=== PATIENT | male | born 1965 | race African-American/Black ===

== ENCOUNTER 2017-06-17 16:23 | Emergency (ER) | payer MEDICARE, MEDICAID ==
[2017-06-17 16:37] VITALS: BP 160/104
--- NOTE | 2017-06-17 17:32 | ER Document Report ---
HPI - HPI Patient complains to provider of: right foot pain Onset: Yesterday Onset/Duration: Gradual Pain Level: 4 Context: 51yo male with hx gout in 1st left MTP developed pain, erythema, swelling to the right 1st MTP yesterady. No flare for 1 year. No preventive meds.No PCP> Used to take antihypertensive, none in over a year. Associated Symptoms: None Exacerbated by: Movement Relieved by: Denies Similar symptoms previously: Yes Recently seen / treated by doctor: No - ROS ROS below otherwise negative: Yes Systems Reviewed and Negative: Yes All other systems reviewed and negative - CONSTITUTIONAL Constitutional: DENIES: Fever - MUSCULOSKELETAL Musculoskeletal: REPORTS: Extremity pain - right foot Past Medical History - General Information source: Patient - Social History Smoking Status: Never Smoker Chew tobacco use (# tins/day): No Frequency of alcohol use: Rare Drug Abuse: None Lives with: Family Family History: Reviewed & Not Pertinent Patient has suicidal ideation: No Patient has homicidal ideation: No - Past Medical History Cardiac Medical History: Reports: Hx Hypertension Renal/ Medical History: Denies: Hx Peritoneal Dialysis Musculoskeltal Medical History: Reports Hx Gout Past Surgical History: Reports: Hx Abdominal Surgery - hernia repair, Hx Orthopedic Surgery Vertical Provider Document - CONSTITUTIONAL Agree With Documented VS: No - pulse 96 at this time Exam Limitations: No Limitations General Appearance: No Apparent Distress - INFECTION CONTROL TRAVEL OUTSIDE OF THE [place] IN LAST 30 DAYS: No - HEENT HEENT: Normocephalic - NECK Neck: Supple - RESPIRATORY Respiratory: Breath Sounds Normal, No Respiratory Distress O2 Sat by Pulse Oximetry: 95 - CARDIOVASCULAR Cardiovascular: Regular Rate, Regular Rhythm - MUSCULOSKELETAL/EXTREMETIES Musculoskeletal/Extremeties: Tender, Edema - erythema, with increased pain with 1st right MTP joint movement. 2+ DP - NEURO Level of Consciousness: Awake, Alert Motor/Sensory: No Motor Deficit, No Sensory Deficit - DERM Integumentary: Warm, Dry, No Rash Course - Re-evaluation Re-evalutation: 06/17/17 17:38 Patient states he has not had antihypertensives for a year. He used to live in [place]. Patient denies any history of renal problems. 06/17/17 17:44 - Vital Signs Vital signs: Temp Pulse Resp BP Pulse Ox 99.6 F 113 H 14 160/104 H 95 06/17/17 16:34 06/17/17 16:34 06/17/17 16:34 06/17/17 16:34 06/17/17 16:34 Discharge - Discharge Clinical Impression: Hypertension Qualifiers: Hypertension type: essential hypertension Qualified Code(s): I10 - Essential ( primary) hypertension Gout Qualifiers: Gout site: toe Gout etiology: unspecified cause Chronicity: acute Laterality: right Qualified Code(s): M10.9 - Gout, unspecified Condition: Good Disposition: HOME, SELF-CARE Instructions: Family Physicians / Practices, Gout ([facility]), Gout Diet ([facility]), High Blood Pressure ([facility]), High Blood Pressure, Requiring Treatment ([facility]), Steroid Medication Additional Instructions: see family practice doctor locally now that you live here for blood pressure medication to er if worse Prescriptions: Prednisone [Deltasone 10 mg Tablet] 10 mg PO ASDIR PRN #21 tablet PRN Reason:
[2017-06-17] MEDS ORDERED: PREDNISONE 20 MG TABLET PO ONE (17:47)
== END 2017-06-17 18:11 | disposition home or self-care (01) ==
LOC: ER 16:23
DX: M10.9 Gout, unspecified (principal); I10 Essential (primary) hypertension; M79.671 Pain in right foot
CPT/HCPCS: 99283; A9270; J7512

== ENCOUNTER 2017-08-09 15:30 | Emergency (ER) | payer MEDICARE, MEDICAID ==
[2017-08-09] MEDS ORDERED: IBUPROFEN 800 MG TABLET PO ONE (15:56)
--- NOTE | 2017-08-09 16:00 | ER Document Report ---
HPI - HPI Patient complains to provider of: knee pain Onset: Last week Onset/Duration: Persistent Quality of pain: Achy Pain Level: 4 Context: Patient presents complaining of bilateral knee pain that he has had chronically for years. Patient states the pain is worsened over the past few weeks. Patient denies any new injury. Patient denies any fever. Associated Symptoms: Other - knee pain. denies: Fever Exacerbated by: Movement Relieved by: Denies Similar symptoms previously: Yes Recently seen / treated by doctor: No - ROS ROS below otherwise negative: Yes Systems Reviewed and Negative: Yes All other systems reviewed and negative - CONSTITUTIONAL Constitutional: DENIES: Fever - NEURO Neurology: DENIES: Weakness - GASTROINTESTINAL Gastrointestinal: DENIES: Nausea - MUSCULOSKELETAL Musculoskeletal: REPORTS: Extremity pain. DENIES: Swelling - DERM Skin Color: Normal Skin Problems: None Past Medical History - General Information source: Patient - Social History Smoking Status: Never Smoker Frequency of alcohol use: Occasional Drug Abuse: None Occupation: [employer] Family History: Reviewed & Not Pertinent - Past Medical History Cardiac Medical History: Reports: Hx Hypertension Renal/ Medical History: Denies: Hx Peritoneal Dialysis Musculoskeltal Medical History: Reports Hx Gout Past Surgical History: Reports: Hx Abdominal Surgery - hernia repair, Hx Orthopedic Surgery Vertical Provider Document - CONSTITUTIONAL Agree With Documented VS: Yes Exam Limitations: No Limitations General Appearance: WD/WN, No Apparent Distress - INFECTION CONTROL TRAVEL OUTSIDE OF THE [place] IN LAST 30 DAYS: No - HEENT HEENT: Atraumatic, Normocephalic - NECK Neck: Normal Inspection - RESPIRATORY Respiratory: Breath Sounds Normal, No Respiratory Distress - CARDIOVASCULAR Cardiovascular: Regular Rate, Regular Rhythm Pulses: Normal: Posterior tibial - BACK Back: Normal Inspection - MUSCULOSKELETAL/EXTREMETIES Musculoskeletal/Extremeties: MAEW, FROM, Tender - Bilateral knee joint tenderness, no effusion, no laxity with varus or valgus maneuvers. Patellar tendon intact bilaterally. Normal skin color and temperature overlying joint - NEURO Level of Consciousness: Awake, Alert, Appropriate Motor/Sensory: No Motor Deficit - DERM Integumentary: Warm, Dry, No Rash Course - Re-evaluation Re-evalutation: 08/09/17 15:57 Patient advised that the emergency department does not manage chronic painful conditions. Patient encouraged to follow-up with his primary doctor as well as orthopedic doctor for further management of chronic arthritic knee pain. No concern for septic arthritis at this time, no history of recent trauma. 08/09/17 15:58 The patient has been informed that they may have pre-hypertension or hypertension based on a blood pressure reading in the emergency department. I recommend that patient call the primary care provider listed on their discharge instructions or a physician of their choice by this week to arrange follow-up for further evaluation of possible pre-hypertension or hypertension. Procedures - Immobilization Left Knee Pre-Proc Neuro Vasc Exam: Normal Immobilizer type: Chapo wrap Performed by: PCT Post-Proc Neuro Vasc Exam: Normal Alignment checked and good: Yes Right Knee Pre-Proc Neuro Vasc Exam: Normal Immobilizer type: Chapo wrap Performed by: PCT Post-Proc Neuro Vasc Exam: Normal Alignment checked and good: Yes Discharge - Discharge Clinical Impression: Elevated blood pressure reading, Hx of chronic arthritis Bilateral knee pain Qualifiers: Chronicity: chronic Qualified Code(s): M25.561 - Pain in right knee Condition: Stable Disposition: HOME, SELF-CARE Instructions: Anti-Inflammatory Medication ([facility]), Arthritis ([facility]), Ultram ([facility]) Additional Instructions: Return immediately for any new or worsening symptoms Followup with your primary care provider, call tomorrow to make a followup appointment Follow-up with orthopedic doctor for further evaluation, call Friday for an appointment Prescriptions: Naproxen [Naprosyn 250 Nmg Tablet] 1 tab PO BID #14 tablet Tramadol HCl [Ultram 50 mg Tablet] 50 mg PO ASDIR PRN #15 tablet PRN Reason: Forms: Elevated Blood Pressure, Return to Work Referrals: [facility] [Provider Group] - 08/11/17 [facility] [Provider Group] - Follow up in 3-5 days
[2017-08-09 16:49] VITALS: BP 175/105
== END 2017-08-09 16:27 | disposition home or self-care (01) ==
LOC: ER 15:30
DX: G89.29 Other chronic pain (principal); M25.561 Pain in right knee; M25.562 Pain in left knee; I10 Essential (primary) hypertension; Z87.39 Personal history of other diseases of the musculoskeletal system and connective tissue
CPT/HCPCS: 99283; A9270

== ENCOUNTER → 2017-08-29 | Outpatient (CLI) | payer MEDICARE, MEDICAID ==
[2017-08-29 15:10] LABS: ABSOLUTE EOSINOPHILS # (AUTO) 0.1 10^3/uL (0.0-0.6); ABSOLUTE LYMPHOCYTES (AUTO) 2.1 10^3/uL (0.5-4.7); ABSOLUTE MONOCYTES (AUTO) 0.3 10^3/uL (0.1-1.4); ABSOLUTE NEUT (AUTO) 1.6 10^3/uL (1.7-8.2); BASOPHILS % (AUTO) 0.6 % (0-2); EOSINOPHILS % (AUTO) 2.6 % (0-6); HEMATOCRIT 40.5 % (37.9-51.0); LYMPHOCYTES % (AUTO) 50.9 % (13-45); MEAN CORPUSCULAR HEMOGLOBIN 22.1 pg (27.0-33.4); MEAN CORPUSCULAR VOLUME 69 fl (80-97); MONOCYTES % (AUTO) 7.3 % (3-13); PLATELET COUNT 328 10^3/uL (150-450); RED BLOOD COUNT 5.88 10^6/uL (4.35-5.55); RED CELL DISTRIBUTION WIDTH 16.2 % (11.5-14.0); SEGMENTED NEUTROPHILS % (AUTO) 38.6 % (42-78); TOTAL CELLS COUNTED % (AUTO) 100 %; WHITE BLOOD COUNT 4.2 10^3/uL (4.0-10.5)
[2017-08-29 15:17] LABS: APPEARANCE,URINE CLEAR; BILIRUBIN,URINE NEGATIVE (NEGATIVE); COLOR,URINE YELLOW; GLUCOSE, URINE NEGATIVE (NEGATIVE); KETONES,URINE NEGATIVE (NEGATIVE); LEUKOCYTE ESTERASE,URINE NEGATIVE (NEGATIVE); NITRITE,URINE NEGATIVE (NEGATIVE); PROTEIN,URINE NEGATIVE (NEGATIVE); URINE SPECIFIC GRAVITY 1.021
[2017-08-29 15:26] LABS: ANION GAP 12 (5-19); BLOOD UREA NITROGEN 12 mg/dL (7-20); CALCIUM 10.2 mg/dL (8.4-10.2); CARBON DIOXIDE 23 mmol/L (22-30); CHLORIDE 107 mmol/L (98-107); GLUCOSE 104 mg/dL (75-110); POTASSIUM 4.2 mmol/L (3.6-5.0); SODIUM 142.4 mmol/L (137-145)
--- NOTE | 2017-08-29 17:27 | RADIOLOGY REPORT (SQ) ---
EXAM DESCRIPTION: CHEST PA/LATERAL COMPLETED DATE/TIME: 08/29/2017 3:02 pm REASON FOR STUDY: PRE-OP COMPARISON: None. EXAM PARAMETERS: NUMBER OF VIEWS: two views TECHNIQUE: Digital Frontal and Lateral radiographic views of the chest acquired. RADIATION DOSE: NA LIMITATIONS: none FINDINGS: LUNGS AND PLEURA: No opacities, masses or pneumothorax. No pleural effusion. MEDIASTINUM AND HILAR STRUCTURES: No masses or contour abnormalities. HEART AND VASCULAR STRUCTURES: Heart normal size. No evidence for failure. BONES: No acute findings. HARDWARE: None in the chest. OTHER: No other significant finding. IMPRESSION: NO SIGNIFICANT RADIOGRAPHIC FINDING IN THE CHEST. TECHNICAL DOCUMENTATION: JOB ID: [id number] [employer]- All Rights Reserved Reading location - IP/workstation name: [email or web address]
--- NOTE | 2017-08-29 22:19 | EKG REPORT ---
SEVERITY:- ABNORMAL ECG - SINUS RHYTHM RBBB AND LAFB LVH BY VOLTAGE : Confirmed by: Misti Simms 29-Aug-2017 22:19:07
== END ==
LOC: OD 14:17
PROVIDERS: ATTEND Orthopaedic Surgery
DX: Z01.818 Encounter for other preprocedural examination (principal); M17.12 Unilateral primary osteoarthritis, left knee
CPT/HCPCS: 36415; 71046; 80048; 81001; 85025; 93005; 93010

== ENCOUNTER 2017-09-15 08:41 | Inpatient (IN) | payer MEDICARE, MEDICAID ==
[~2017-09-15 08:41] MED LIST: BUPIVACAINE INJ/PF LIPOSOME/PF 266 MG/20 ML SDV IJ PRN; CEFAZOLIN INJ 1 GM VIAL IV PRN; IBUPROFEN 800 MG in DEXTROSE 5%-WATER 250 ML IV PRN; IBUPROFEN 800 MG/NS 250 ML IV PRN; LACTATED RINGERS 1000 ML IV PRN; LANSOPRAZOLE 15 MG TAB.RAP.DR PO PRN; LIDOCAINE 0.5% INJ-PF (5 MG/ML) 50 ML SDV SUBCUT PRN; OXYCODONE HCL SR 10 MG TABLET PO PRN; TETRACAINE HCL/PF 20MG/2ML AMPULE (SPINAL) ONE; VANCOMYCIN HCL 1,000 MG in DEXTROSE 5%-WATER 250 ML IV PRN
--- NOTE | 2017-09-15 09:45 | Physician Advisory Note ---
Physician Advisor ProgressNote .: Pursuant to the plan for [facility], I have reviewed the medical record for this patient. Physician Advisor Statement: 52yo with bipolar d/o, OA both knees, prior arthoscopy Lt knee for ACL, screws in Lt leg, screws & plate Rt hand, HTN, HLD, angina, herniorrhaphy w/mesh 2016, obesity w/BMI 31.6, childhood asthma, limited quite a lot with vigorous activities, stairs, bending/kneeling/stooping , dressing self, shampooing hair, washing/drying body, and getting on/off toilet , and somewhat limited with walking >1mile, and chores such as yardwork. Status: Insufficient info to make definite determination yet, but pt does have OA in both knees, not just 1, and has significant limitations not only in ADLs requiring knee movement but also with upper extremity ADLs, which may impact the speed of his post-op recovery, r.e. walker mobility. Furthermore, depending on the details of his angina issues, cardiovascular complications could potentially contribute to his not progressing fast enough to be safe for d /c the day after surgery. H&P states pt - Suspect this patient has a strong likelihood of not being able to progress fast enough for d/c on POD#1. If attending agrees, and documents his reasoning , this patient can be appropriate for Inpatient status from the beginning. Surgical necessity: Nonsurgical treatments already tried, and ADLs interfered with by pain or functional disability from Lt knee OA are nicely documented in H&P (though stating how long each treatment has been tried, with specific results for each, would be optimal - details that could be delegated to a nurse to input if attending signs their documentation). What still needs to be documented explicitly (what is already stated in H&P might be accepted by some auditors, but others may refuse to acknowledge surgical necessity without explicit documentation of which of the x-ray findings below are present, per CMS guidance list): 4. Specific radiologic findings pre-op of this knee include (Choose ALL that apply): A. Subchondral cysts B. Subchondral sclerosis C. Periarticular osteophytes D. Joint space narrowing / endstage joint disease E. Joint subluxation F. AVN / osteonecrosis Thanks for all you do! CK
[2017-09-15] MEDS ORDERED: THROMBIN (BOVINE) TOPICAL 20000 UNIT VIAL ONE (10:26)
[2017-09-15] MEDS ORDERED: THROMBIN (BOVINE) 5000 UNIT EPITAXIS KIT ONE (10:27)
[2017-09-15] MEDS ORDERED: BUPIVACAINE INJ/PF LIPOSOME/PF 266 MG/20 ML SDV ONE (10:27)
[2017-09-15] MEDS ORDERED: ONDANSETRON HCL INJ/PF 4 MG/2 ML SDV ONE (10:45)
[2017-09-15] MEDS ORDERED: FENTANYL CITRATE INJ/PF 100 MCG/2 ML AMPUL ONE (10:45)
[2017-09-15] MEDS ORDERED: EPHEDRINE SULFATE INJ 50 MG/1 ML AMPULE ONE (10:45)
[2017-09-15] MEDS ORDERED: MIDAZOLAM 2 MG/2 ML INJ ONE ×2 (10:45)
[2017-09-15] MEDS ORDERED: TRANEXAMIC ACID INJ/PF 1,000 MG/10 ML SDV IV ONE ×2 (10:46→15:00)
[2017-09-15] MEDS ORDERED: PROPOFOL INJ 200 MG/20 ML VIAL IV ONE (10:46)
[2017-09-15] MEDS ORDERED: TETRACAINE HCL/PF 20MG/2ML AMPULE (SPINAL) ONE (10:46)
[2017-09-15] MEDS ORDERED: PROMETHAZINE HCL INJ 25 MG/1 ML VIAL IV PRN (11:40)
[2017-09-15] MEDS ORDERED: FENTANYL CITRATE INJ/PF 100 MCG/2 ML AMPUL IV PRN ×3 (11:40)
[2017-09-15] MEDS ORDERED: DIPHENHYDRAMINE HCL 50 MG/ML VIAL IV PRN ×2 (11:40→12:27)
[2017-09-15] MEDS ORDERED: MEPERIDINE HCL/PF INJ 25 MG/1 ML DISP.SYRIN IV PRN (11:40)
[2017-09-15] MEDS ORDERED: ONDANSETRON 4 MG TAB.RAPDIS PO PRN ×2 (12:27→15:00)
[2017-09-15] MEDS ORDERED: ACETAMINOPHEN 325 MG TABLET PO PRN (12:27)
[2017-09-15] MEDS ORDERED: ONDANSETRON HCL INJ/PF 4 MG/2 ML SDV IV PRN ×2 (12:27→15:00)
[2017-09-15] MEDS ORDERED: RINGERS SOLUTION,LACTATED 1,000 ML IV PRN (12:27)
[2017-09-15] MEDS ORDERED: MORPHINE SULFATE 10 MG/ML INJ IV PRN ×2 (12:27)
[2017-09-15] MEDS ORDERED: MORPHINE SULFATE 10 MG/ML INJ IM PRN (12:27)
[2017-09-15] MEDS ORDERED: MAG HYDROX/AL HYDROX/SIMETH SUSP 30 ML UDCUP PO PRN (12:27)
--- NOTE | 2017-09-15 12:27 | Operative Report ---
Operative Report DATE OF SURGERY: 09/15/17 PREOPERATIVE DIAGNOSIS: Posttraumatic left knee arthritis OPERATION: Left knee arthroplasty SURGEON: CARLA BUSH ANESTHESIA: Spinal TISSUE REMOVED OR ALTERED: Bone to pathology ESTIMATED BLOOD LOSS: 100 PROCEDURE: Implants used: Femur: Tracy triathlon size 5 CR femur Tibia: 4 tibia Tibial liner: 9 mm CS insert Patella: 35 mm oval patella Procedure with the patient supine on the operating table the left the limb is prepped and draped in a sterile fashion. The limb was elevated for exsanguination and the tourniquet inflated to 280 torr. A standard midline median parapatellar approach the knee is taken. Access is gained to the femoral canal through the intercondylar notch. Intramedullary alignment instrumentation used to resect 10 mm of distal femur in 5 of valgus. Sizing guide indicated a size 5 femur. Appropriate cutting jig is then used to fashion anterior posterior and chamfer cuts. A trial reduction femurs performed and this is judged to be adequate. Attention was next turned to the tibia. Using an extra medullary alignment system 9 millimeters was resected off the lateral tibial plateau. This is sized to a size 4 tibia. A trial reduction was now performed with a 5 femur and a 4 tibia using a 9 millimeters spacer. It is full extension and central patellofemoral tracking. The articular surface the patella was next resected using an oscillating saw. All trial implants were removed. Polymethylmethacrylate is mixed and used to cement the above implants in place. On adequate curing the cement excess cement was removed the tourniquet was deflated hemostasis obtained the wound is then closed in layers using interrupted Vicryl followed by kam. A sterile compressive dressing was applied and the patient returned to recovery room in satisfactory condition.
--- NOTE | 2017-09-15 13:30 | RADIOLOGY REPORT (SQ) ---
EXAM DESCRIPTION: KNEE LEFT 2 VIEWS COMPLETED DATE/TIME: 09/15/2017 12:57 pm REASON FOR STUDY: Post OP -Long Cassette in PACU M17.0 BILATERAL PRIMARY OSTEOARTHRITIS OF KNEE COMPARISON: None. NUMBER OF VIEWS: Two-views TECHNIQUE: Digital radiographic images of the left knee post-procedure. LIMITATIONS: None. FINDINGS: BONES: No worrisome or unexpected findings post-procedure. DEVICE: Total knee replacement with patellar resurfacing. Good alignment SOFT TISSUES: No worrisome findings. Expected postoperative soft tissue changes. IMPRESSION: SATISFACTORY POSTOPERATIVE LEFT KNEE. TECHNICAL DOCUMENTATION: JOB ID: [id number] [employer]- All Rights Reserved Reading location - IP/workstation name: [email or web address]
[2017-09-15] MEDS: MORPHINE SULFATE 10 MG/ML INJ IV PRN ×2 (16:34→23:43)
[2017-09-15] MEDS: IBUPROFEN 800 MG in DEXTROSE 5%-WATER 250 ML IV SCH (18:47)
[2017-09-15] MEDS: SENNOSIDES/DOCUSATE 8.6-50 MG 1 EACH TABLET PO SCH (18:49)
[2017-09-15] MEDS ORDERED: ZOLPIDEM TARTRATE 5 MG TABLET PO PRN (22:00)
[2017-09-15] MEDS ORDERED: ATENOLOL 50 MG TABLET PO ONE (22:00)
[2017-09-15] MEDS ORDERED: HYDROCHLOROTHIAZIDE 25 MG TABLET PO ONE (22:00)
[2017-09-15] MEDS: OXYCODONE HCL SR 10 MG TABLET PO SCH (22:15)
[2017-09-16] MEDS ORDERED: VANCOMYCIN HCL 1,000 MG in DEXTROSE 5%-WATER 250 ML IV ONE (00:28)
[2017-09-16] MEDS: MORPHINE SULFATE 10 MG/ML INJ IV PRN ×3 (02:16→16:19)
[2017-09-16] MEDS: IBUPROFEN 800 MG in DEXTROSE 5%-WATER 250 ML IV SCH ×3 (02:17→18:10)
[2017-09-16] MEDS: OXYCODONE HCL IR 5 MG TABLET PO PRN (05:21)
[2017-09-16] MEDS: LANSOPRAZOLE 30 MG TAB.RAP.DR PO SCH (05:23)
[2017-09-16 06:00] LABS: HEMATOCRIT 39.2 % (37.9-51.0); HEMOGLOBIN 12.6 g/dL (13.5-17.0); MEAN CORPUSCULAR HEMOGLOBIN 22.2 pg (27.0-33.4); MEAN CORPUSCULAR HGB CONC 32.1 g/dL (32.0-36.0); MEAN CORPUSCULAR VOLUME 69 fl (80-97); PLATELET COUNT 264 10^3/uL (150-450); RED BLOOD COUNT 5.65 10^6/uL (4.35-5.55); WHITE BLOOD COUNT 10.1 10^3/uL (4.0-10.5)
[2017-09-16 06:19] LABS: ANION GAP 11 (5-19); BLOOD UREA NITROGEN 10 mg/dL (7-20); CALCIUM 9.4 mg/dL (8.4-10.2); CARBON DIOXIDE 27 mmol/L (22-30); CHLORIDE 100 mmol/L (98-107); GLUCOSE 149 mg/dL (75-110); POTASSIUM 3.6 mmol/L (3.6-5.0)
--- NOTE | 2017-09-16 07:14 | PDOC PROGRESS REPORT ---
Subjective Progress Note for:: 09/16/17 Reason For Visit: POSTTRAUMATIC LEFT KNEE ARTHRITIS 52-year-old black male postop day 1 status post left knee arthroplasty for posttraumatic arthritis. Patient had a prolonged response to anesthesia and was unable to participate in physical therapy yesterday. Physical Exam Vital Signs: Temp Pulse Resp BP Pulse Ox 36.8 C 67 17 135/91 H 97 09/16/17 04:52 09/16/17 04:52 09/16/17 04:52 09/16/17 04:52 09/16/17 04:52 Intake & Output 09/15/17 09/16/17 09/17/17 06:59 06:59 06:59 Intake Total 5080 Output Total 4230 Balance 850 Weight 102.6 kg General appearance: PRESENT: no acute distress Head exam: PRESENT: normocephalic Respiratory exam: PRESENT: unlabored Cardiovascular exam: PRESENT: RRR Pulses: PRESENT: +1 pedal pulses bilateral Vascular exam: PRESENT: normal capillary refill GI/Abdominal exam: PRESENT: soft Rectal exam: PRESENT: deferred Extremities exam: PRESENT: other - Left knee dressing clean dry and intact. Distal neurovascular examination is intact. Neurological exam: PRESENT: alert, awake, oriented to person, oriented to place , oriented to time, oriented to situation. ABSENT: motor sensory deficit Psychiatric exam: PRESENT: appropriate affect, normal mood. ABSENT: homicidal ideation, suicidal ideation Skin exam: PRESENT: dry, intact, warm. ABSENT: cyanosis, rash Results Laboratory Results: 09/16/17 05:33 09/16/17 05:33 09/15/17 09/16/17 09/16/17 10:04 05:33 05:33 WBC 10.1 RBC 5.65 H Hgb 12.6 L Hct 39.2 MCV 69 L MCH 22.2 L MCHC 32.1 RDW 16.0 H Plt Count 264 Sodium 138.0 Potassium 4.4 3.6 Chloride 100 Carbon Dioxide 27 Anion Gap 11 BUN 10 Creatinine 0.89 Est GFR ( Amer) > 60 Est GFR (Non-Af Amer) > 60 Glucose 149 H Calcium 9.4 Impressions: Knee X-Ray 09/15/17 12:29 IMPRESSION: SATISFACTORY POSTOPERATIVE LEFT KNEE. Status: Imported from PACS Assessment & Plan - Diagnosis (1) Arthritis of left knee Is this a current diagnosis for this admission?: Yes Plan: 52-year-old black male postop day 1 left knee arthroplasty. At this point he does not have the functional capacity instead of discharge today. He will be seen by physical therapy today mobilized and weightbearing as tolerated basis. Provided there is adequate functional status consideration could be given to discharge home tomorrow with home health services - Time Time Spent with patient: 15-24 minutes Anticipated discharge: Home with Homehealth Within: within 24 hours
[2017-09-16] MEDS: PRENATAL VITAMIN W DHA CAPSULE PO SCH (09:21)
[2017-09-16] MEDS: ASPIRIN 81 MG TABLET, ENT COATED PO SCH (09:21)
[2017-09-16] MEDS: SENNOSIDES/DOCUSATE 8.6-50 MG 1 EACH TABLET PO SCH ×2 (09:21→18:10)
[2017-09-16] MEDS: HYDROCHLOROTHIAZIDE 25 MG TABLET PO SCH (09:22)
[2017-09-16] MEDS: ATENOLOL 50 MG TABLET PO SCH (09:23)
[2017-09-16] MEDS: OXYCODONE HCL SR 10 MG TABLET PO SCH ×2 (09:23→21:23)
[2017-09-16] MEDS ORDERED: HYDROCHLOROTHIAZIDE PO SCH (10:00)
[2017-09-16] MEDS ORDERED: BISOPROLOL PO SCH (10:00)
[2017-09-16] MEDS ORDERED: [UNRECOGNIZED DRUG - OTHER] PO SCH (10:00)
--- NOTE | 2017-09-16 12:53 | Physician Advisory Note ---
Physician Advisor ProgressNote .: Pursuant to the plan for [facility], I have reviewed the medical record for this patient. Physician Advisor Statement: Status: appropriate Inpatient, as pt not progressing adequately w/PT yet for safe d/c, still insufficient ROM as well. CK
[2017-09-17] MEDS: OXYCODONE HCL IR 5 MG TABLET PO PRN ×2 (00:24→06:14)
[2017-09-17] MEDS: IBUPROFEN 800 MG in DEXTROSE 5%-WATER 250 ML IV SCH ×2 (03:10→09:17)
[2017-09-17] MEDS: LANSOPRAZOLE 30 MG TAB.RAP.DR PO SCH (05:58)
[2017-09-17 06:57] LABS: HEMATOCRIT 38.6 % (37.9-51.0); HEMOGLOBIN 11.9 g/dL (13.5-17.0); MEAN CORPUSCULAR HEMOGLOBIN 21.2 pg (27.0-33.4); MEAN CORPUSCULAR HGB CONC 30.8 g/dL (32.0-36.0); MEAN CORPUSCULAR VOLUME 69 fl (80-97); PLATELET COUNT 289 10^3/uL (150-450); RED CELL DISTRIBUTION WIDTH 15.7 % (11.5-14.0)
--- NOTE | 2017-09-17 07:00 | PDOC DISCHARGE SUMMARY ---
General - Admit/Disc Date/PCP Admission Date/Primary Care Provider: 09/15/17 08:41 LUCY ABDI MD Discharge Date: 09/17/17 - Discharge Diagnosis (1) Arthritis of left knee Is this a current diagnosis for this admission?: Yes - Additional Information Resuscitation Status: Full Code Discharge Diet: As Tolerated, Regular Discharge Activity: Activity As Tolerated, Balance Activity w/Rest, No Driving, No tub bath Home Medications: Ibuprofen 200 mg PO DAILYP PRN 08/26/17 Bisoprolol/Hydrochlorothiazide [Bisoprolol-Hctz 2.5-6.25 mg Tb] 1 tab PO DAILY 09/10/17 Aspirin [Ecotrin 81 mg EC Tablet] 81 mg PO DAILY tabec 09/17/17 Oxycodone HCl [Oxy-Ir 5 mg Tablet] 5 mg PO Q6HP PRN tablet 09/17/17 History of Present Illness History of Present Illness: MUSHTAQ LOPEZ is a 52 year old male with progressive left knee pain and functional disability secondary to posttraumatic osteoarthritis. Patient is admitted for elective left knee arthroplasty. Hospital Course Hospital Course: Patient is admitted through the operating where he undergoes uncompensated left knee arthroplasty. Is returned to floor in satisfactory condition. Because of persistent spinal anesthetic is not seen by physical therapy on the day of surgery. He begins his physical therapy for weightbearing as tolerated on stopped day 1 and makes excellent progress. Dressings taken down on postop day 2. OpSite is dry with the exception of 2 small areas of old drainage. There is minimal edema about the knee and no pedal edema. Physical Exam Vital Signs: Temp Pulse Resp BP Pulse Ox 36.9 C 68 16 154/91 H 97 09/16/17 23:26 09/16/17 23:26 09/16/17 23:26 09/16/17 23:26 09/16/17 23:26 Intake & Output 09/15/17 09/16/17 09/17/17 06:59 06:59 06:59 Intake Total 5080 704 Output Total 4230 2300 Balance 850 -1596 Weight 102.6 kg General appearance: PRESENT: no acute distress Head exam: PRESENT: normocephalic Respiratory exam: PRESENT: unlabored Cardiovascular exam: PRESENT: RRR Pulses: PRESENT: +1 pedal pulses bilateral GI/Abdominal exam: PRESENT: soft Rectal exam: PRESENT: deferred Musculoskeletal exam: PRESENT: other - Left knee dressing with 2 small areas of old drainage 1 proximal and distal. Otherwise the dressings clean dry and intact. There is minimal knee edema. Minimal pedal edema. Distal neurovascular examination is intact. Neurological exam: PRESENT: alert, awake, oriented to person, oriented to place , oriented to time, oriented to situation. ABSENT: motor sensory deficit Psychiatric exam: PRESENT: appropriate affect, normal mood. ABSENT: homicidal ideation, suicidal ideation Skin exam: PRESENT: dry, intact, warm. ABSENT: cyanosis, rash Results Laboratory Results: 09/16/17 05:33 Impressions: Knee X-Ray 09/15/17 12:29 IMPRESSION: SATISFACTORY POSTOPERATIVE LEFT KNEE. Status: Imported from PACS Qualifiers - * PATEINT BEING DISCHARGED WITH ANY OF THE FOLLOWING DIAGNOSIS?: No VTE patient discharged on overlapping Therapy?: Yes Plan Discharge Plan: Patient to be discharged home with home health nursing, home health physical therapy, wheeled walker, bedside commode. Follow-up with Dr. Hammer [facility] for surgery in 2 weeks for staple removal.
[2017-09-17] MEDS: ASPIRIN 81 MG TABLET, ENT COATED PO SCH (09:14)
[2017-09-17] MEDS: PRENATAL VITAMIN W DHA CAPSULE PO SCH (09:14)
[2017-09-17] MEDS: OXYCODONE HCL SR 10 MG TABLET PO SCH (09:15)
[2017-09-17] MEDS: SENNOSIDES/DOCUSATE 8.6-50 MG 1 EACH TABLET PO SCH (09:15)
[2017-09-17] MEDS: ATENOLOL 50 MG TABLET PO SCH (09:16)
[2017-09-17] MEDS: HYDROCHLOROTHIAZIDE 25 MG TABLET PO SCH (09:16)
[2017-09-17 13:01] VITALS: BP 142/75
== END 2017-09-17 12:09 | disposition home health service (06) | DRG 470 ==
LOC: INOR 08:41 → 4S 13:46
PROVIDERS: ADMIT Orthopaedic Surgery; ATTEND Orthopaedic Surgery
PROC: 0SRD0J9 Replacement of Left Knee Joint with Synthetic Substitute, Cemented, Open Approach (ICD-10-PCS; principal; 2017-09-15 11:15)
DX: M17.32 Unilateral post-traumatic osteoarthritis, left knee (principal); I10 Essential (primary) hypertension
CPT/HCPCS: 01402; 36415; 80048; 84132; 85027; 88305; 88311; 94799; C2625; C9290; G8978-GP; G8979-GP; G8987-GO; G8988-GO; J0690; J1200; J1741; J2250; J2270; J2405; J2704; J3010; J3370; J3490; J7050; J7060

== ENCOUNTER 2018-01-26 11:47 | Emergency (ER) | payer MEDICARE, MEDICAID ==
[2018-01-26 12:45] VITALS: BP 172/106
[2018-01-26] MEDS ORDERED: PENICILLIN G BENZATHINE 1.2 MILLION UNIT/2 ML DISP.SYRIN IM ONE (13:49)
[2018-01-26] MEDS ORDERED: ONDANSETRON 4 MG TAB.RAPDIS PO ONE (13:50)
--- NOTE | 2018-01-26 14:01 | ER Document Report ---
ED Medical Screen (RME) - General Chief Complaint: Nausea/Vomiting Stated Complaint: VOMITING Time Seen by Provider: 01/26/18 13:49 Mode of Arrival: Ambulatory Information source: Patient Notes: This is a 52-year-old man with a history of hypertension that presents to the emergency room with sore throat. His daughter did have documented strep infection. He does have some nausea and vomiting. He did his fever. TRAVEL OUTSIDE OF THE [place] IN LAST 30 DAYS: No - HPI Onset: Yesterday Onset/Duration: Gradual Quality of pain: No pain Severity: None Pain Level: Denies Associated Symptoms: denies: Chest pain, Shortness of breath Exacerbated by: Denies Relieved by: Denies Similar symptoms previously: No Recently seen / treated by doctor: No - Related Data Smoking: Non-smoker Frequency of alcohol use: None Drug Abuse: None Allergies/Adverse Reactions: metoclopramide [From Reglan] Allergy (Verified 01/26/18 13:50) rash pecan nut Allergy (Verified 01/26/18 13:50) walnut Allergy (Verified 01/26/18 13:50) compazine Allergy (Uncoded 01/26/18 13:50) rash Past Medical History - General Information source: Patient - Social History Cigarette use (# per day): No Chew tobacco use (# tins/day): No Frequency of alcohol use: Occasional Drug Abuse: None Lives with: Family Family history: None - Past Medical History Cardiac Medical History: Reports: Hx Hypercholesterolemia, Hx Hypertension Denies: Hx Atrial Fibrillation, Hx Congestive Heart Failure, Hx Coronary Artery Disease, Hx Heart Attack, Hx Peripheral Vascular Disease, Hx Pulmonary Embolism, Hx Heart Murmur Pulmonary Medical History: Reports: Hx Asthma - as a child, Hx Pneumonia - 5-6 yrs ago Denies: Hx Bronchitis, Hx COPD, Hx Respiratory Failure, Hx Sleep Apnea, Hx Tuberculosis Renal/ Medical History: Denies: Hx Peritoneal Dialysis Malignancy Medical History: Denies Hx Leukemia, Denies Hx Lung Cancer Musculoskeltal Medical History: Reports Hx Arthritis - knees, Denies Hx Fibromyalgia, Reports Hx Gout, Denies Hx Muscular Dystrophy Psychiatric Medical History: Reports: Hx Bipolar Disorder Denies: Hx Depression, Hx Post Traumatic Stress Disorder, Hx Schizophrenia Traumatic Medical History: Denies: Hx Fractures Infectious Medical History: Denies: Hx HIV Past Surgical History: Reports: Hx Abdominal Surgery - hernia repair, Hx Herniorrhaphy - 2016 with mesh, Hx Orthopedic Surgery - left knee/right hand. Denies: Hx Appendectomy, Hx Bowel Surgery, Hx Cholecystectomy, Hx Coronary Artery Bypass Graft, Hx Gastric Bypass Surgery, Hx Tonsillectomy - Immunizations History of Influenza Vaccine for 03/2017 - 08/2017 Season: No Review of Systems - Review of Systems Constitutional: denies: Chills, Fever EENT: See HPI, Throat pain, Other - Patient can swallow Cardiovascular: No symptoms reported. denies: Chest pain, Palpitations, Heart racing Respiratory: No symptoms reported. denies: Hemoptysis, Short of breath, Wheezing Gastrointestinal: Nausea, Vomiting. denies: Abdominal pain Genitourinary: No symptoms reported Male Genitourinary: No symptoms reported Musculoskeletal: No symptoms reported Skin: No symptoms reported Hematologic/Lymphatic: No symptoms reported Neurological/Psychological: No symptoms reported Physical Exam - Vital signs Vitals: Temp Pulse Resp BP Pulse Ox 98.8 F 77 16 172/106 H 96 01/26/18 12:43 01/26/18 12:43 01/26/18 12:43 01/26/18 12:43 01/26/18 12:43 Notes: Physical exam: GENERAL: 52-year-old man, alert and oriented 3, no acute distress HEAD: Atraumatic, normocephalic. EYES: Pupils equal round and reactive to light, extraocular movements intact, sclera anicteric, conjunctiva are normal. ENT: TMs normal, nares patent, oropharynx erythematous with enlarged tonsils with some exudates. There is no unilateral swelling. There is no fluctuance. Is no uvula deviation. NECK: Normal range of motion, supple without obvious mass. There is no stridor. LUNGS: Breath sounds clear to auscultation bilaterally and equal. No wheezes rales or rhonchi. HEART: Regular rate and rhythm without murmurs, rubs or gallops. ABDOMEN: Soft, normoactive bowel sounds. No tenderness to palpation. No guarding, no rebound. No masses appreciated. EXTREMITIES: Normal range of motion, no pitting or edema. No clubbing or cyanosis. NEUROLOGICAL: Cranial nerves II through XII grossly intact. Normal speech, moving all extremities. PSYCH: Normal mood, normal affect. SKIN: Warm, Dry, normal turgor, no rashes or lesions noted. Course - Vital Signs Vital signs: Temp Pulse Resp BP Pulse Ox 98.8 F 77 16 172/106 H 96 01/26/18 12:43 01/26/18 12:43 01/26/18 12:43 01/26/18 12:43 01/26/18 12:43 Doctor's Discharge - Discharge Clinical Impression: Acute pharyngitis Condition: Stable Disposition: HOME, SELF-CARE Instructions: Strep Throat ([facility]), Tonsillitis ([facility]) Additional Instructions: Recommendations: Rest, drink plenty of fluids, saltwater gargling or Listerine gargling. Take antibiotics as prescribed. Start antibiotics in the morning. Take the nausea medicine as needed. Return to the emergency room for worsening pain, inability to swallow or concerns or getting worse. Prescriptions: Ondansetron HCl [Zofran 4 mg Tablet] 1 - 2 tab PO Q4H PRN #10 tablet PRN Reason: Penicillin V Potassium [Penicillin Vk 500 mg Tablet] 500 mg PO QID #28 tablet Forms: Return to Work Referrals: LUCY ABDI MD [Primary Care Provider] - Follow up in 1 week
== END 2018-01-26 14:59 | disposition home or self-care (01) ==
LOC: ER 11:47
DX: J02.9 Acute pharyngitis, unspecified (principal); J35.1 Hypertrophy of tonsils; R11.2 Nausea with vomiting, unspecified; I10 Essential (primary) hypertension; Z88.8 Allergy status to other drugs, medicaments and biological substances; Z91.018 Allergy to other foods
CPT/HCPCS: 87070; 87077; 87880; 99284

== ENCOUNTER 2018-10-09 17:18 | Emergency (ER) | payer MEDICARE, MEDICAID ==
[2018-10-09 17:45] VITALS: BP 174/99
[2018-10-09] MEDS ORDERED: ACETAMINOPHEN 325 MG TABLET PO ONE (17:59)
[2018-10-09] MEDS ORDERED: LIDOCAINE 5% (700 MG) TRANSDERMAL ADH..PATCH TP ONE (17:59)
--- NOTE | 2018-10-09 18:04 | ER Document Report ---
HPI - HPI Patient complains to provider of: Right upper arm injury Time Seen by Provider: 10/09/18 17:51 Onset: This afternoon Onset/Duration: Sudden Quality of pain: Achy Pain Level: 4 Context: Patient states he was helping to lift an AC unit and the other person dropped her load. Patient states that he felt a sudden pop in the muscle of his right upper arm whenever he had to assume the full weight of the unit. Patient denies any elbow or shoulder joint pain. Associated Symptoms: Other - Right upper arm pain Exacerbated by: Movement Relieved by: Remaining still Similar symptoms previously: No Recently seen / treated by doctor: No - ROS ROS below otherwise negative: Yes Systems Reviewed and Negative: Yes All other systems reviewed and negative - NEURO Neurology: DENIES: Weakness - CARDIOVASCULAR Cardiovascular: DENIES: Chest pain - RESPIRATORY Respiratory: DENIES: Trouble Breathing, Coughing - GASTROINTESTINAL Gastrointestinal: DENIES: Nausea, Patient vomiting - MUSCULOSKELETAL Musculoskeletal: REPORTS: Extremity pain - Right upper arm. DENIES: Back Pain, Neck Pain - DERM Skin Color: Normal Skin Problems: None Past Medical History - General Information source: Patient - Social History Smoking Status: Never Smoker Frequency of alcohol use: None Drug Abuse: None Family History: Reviewed & Not Pertinent - Past Medical History Cardiac Medical History: Reports: Hx Hypercholesterolemia, Hx Hypertension Pulmonary Medical History: Reports: Hx Asthma - as a child, Hx Pneumonia - 5-6 yrs ago Renal/ Medical History: Denies: Hx Peritoneal Dialysis Musculoskeletal Medical History: Reports Hx Arthritis - knees, Reports Hx Gout Psychiatric Medical History: Reports: Hx Bipolar Disorder Traumatic Medical History: Denies: Hx Fractures Infectious Medical History: Denies: Hx HIV Past Surgical History: Reports: Hx Abdominal Surgery - hernia repair, Hx Herniorrhaphy - 2016 with mesh, Hx Orthopedic Surgery - left knee/right hand Vertical Provider Document - CONSTITUTIONAL Agree With Documented VS: Yes Exam Limitations: No Limitations General Appearance: WD/WN, No Apparent Distress - INFECTION CONTROL TRAVEL OUTSIDE OF THE [place] IN LAST 30 DAYS: No - HEENT HEENT: Atraumatic, Normocephalic - NECK Neck: Normal Inspection - RESPIRATORY Respiratory: No Respiratory Distress - CARDIOVASCULAR Pulses: Normal: Radial Notes: Normal capillary refill - BACK Back: Normal Inspection - MUSCULOSKELETAL/EXTREMETIES Musculoskeletal/Extremeties: MAEW, FROM, Tender - Patient with tenderness along the bicep muscle of her right upper extremity. No obvious edema or ecchymosis. No muscle deformity. Muscle compartments soft., No Edema. negative: Eccymosis - NEURO Level of Consciousness: Awake, Alert, Appropriate Motor/Sensory: No Motor Deficit, No Sensory Deficit - DERM Integumentary: Warm, Dry, No Rash Course - Re-evaluation Re-evalutation: 10/09/18 18:01 Suspect likely muscle strain to right upper extremity bicep. No obvious deformity, patient without any joint tenderness. No concern for fracture. No concern for compartment syndrome. Patient encouraged to follow-up with orthopedics for further evaluation - Vital Signs Vital signs: Temp Pulse Resp BP Pulse Ox 98 F 64 18 174/99 H 100 10/09/18 17:44 10/09/18 17:44 10/09/18 17:44 10/09/18 17:44 10/09/18 17:44 Procedures - Immobilization Right Arm Pre-Proc Neuro Vasc Exam: Normal Immobilizer type: Sling Performed by: PCT Post-Proc Neuro Vasc Exam: Normal Alignment checked and good: Yes Discharge - Discharge Clinical Impression: Muscle strain Condition: Stable Disposition: HOME, SELF-CARE Instructions: Ice & Elevation ([facility]), Muscle Relaxers ([facility]), Muscle Strain ([facility]), Temporary Sling ([facility]), Tendon Strain ([facility]) Additional Instructions: Return immediately for any new or worsening symptoms Followup with your primary care provider, call tomorrow to make a followup appointment Orthopedics for further evaluation, call Friday for an appointment Wear sling while awake only for the next 4 days and then remove. If still having pain see Ortho for further evaluation Prescriptions: Cyclobenzaprine HCl [Flexeril 10 Mg Tablet] 10 mg PO TID #15 tablet Lidocaine [Lidoderm 5% (700 mg) Transdermal Patch] 1 patch TP DAILY PRN #10 adh..patch PRN Reason: Referrals: LUCY ABDI MD [Primary Care Provider] - Follow up as needed [facility] [Provider Group] - Follow up in 3-5 days
== END 2018-10-09 18:12 | disposition home or self-care (01) ==
LOC: ER 17:18
DX: S46.211A Strain of muscle, fascia and tendon of other parts of biceps, right arm, initial encounter (principal); X50.0XXA Overexertion from strenuous movement or load, initial encounter; E78.00 Pure hypercholesterolemia, unspecified; I10 Essential (primary) hypertension
CPT/HCPCS: 99283; A9270